=== PATIENT | female | born 1990 | race Caucasian/White ===

== ENCOUNTER 2020-08-18 00:09 | Emergency (ER) | payer OTHER ==
[~2020-08-18] VITALS: Ht 170.2 cm; Wt 120.2 kg
[~2020-08-18 00:09] MED LIST: CHATEAL1 EACH; FLEXERIL PO; HYDROCODON-ACE1 EAC7 PO; NAPROSYN375 MG PO
[2020-08-18] MEDS ORDERED: AMOXICILLIN875 MG PO (01:53)
[2020-08-18 02:00] VITALS: BP 139/83
== END 2020-08-18 02:01 | disposition home or self-care (01) ==
LOC: M.ERS 00:09
DX: H66.90 Otitis media, unspecified, unspecified ear (principal); J01.90 Acute sinusitis, unspecified